=== PATIENT | female | born 1950 | race Caucasian/White ===

== ENCOUNTER 2019-11-12 09:00 | Outpatient (RCR) | payer OTHER, SELFPAY ==
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
== END 2019-11-12 11:35 | disposition home or self-care (01) ==
LOC: ANHPT 09:00
DX: M54.2 Cervicalgia (principal)
CPT/HCPCS: 97110; 97162

== ENCOUNTER 2020-04-14 12:29 | Outpatient (CLI) | payer OTHER, SELFPAY ==
--- NOTE | ~2020-04-14 | CT_ITS ---
EXAMINATION: CT abdomen pelvis w con INDICATION: Nausea vomiting and diarrhea TECHNIQUE: Computed tomographic images of the abdomen and pelvis were obtained after the administrati on of 100 cc of Omnipaque 350 intravenous contrast. The dose-length product (DLP) was 523.94 mGy-cm. Automated exposure control and iterative reconstruction technique were employed. COMPARISON: None available FINDINGS: Minimal dependent atelectasis is present in the lung bases. The heart size is normal. The l iver, spleen, pancreas, gallbladder, and adrenal glands are normal. The kidneys are unremarkable. No pathologically enlarged abdominal or pelvic lymph nodes are identified. There is no free intraperiton eal gas or evidence of bowel obstruction. A moderate volume of colonic stool is present. The appendix is normal. There is a left inguinal hernia containing fat. There is moderate lumbar spondylosis. IMPRESSION: 1. Constipation. 2. Left inguinal hernia containing fat. Reviewed, dictated and finalized at location A. E HOIST OPERATOR
[2020-04-14 13:24] LABS: Estimated Glomerular Filt Rate > 60
== END 2020-04-14 12:30 | disposition home or self-care (01) ==
LOC: ANHIMG 12:39
PROVIDERS: PCP Internal Medicine; Visit Provider Internal Medicine
DX: R11.2 Nausea with vomiting, unspecified (principal); K40.90 Unilateral inguinal hernia, without obstruction or gangrene, not specified as recurrent; K59.00 Constipation, unspecified
CPT/HCPCS: 74177; Q9967

== ENCOUNTER → 2020-09-16 02:51 | Outpatient (CLI) | payer OTHER, SELFPAY ==
[2020-09-16 18:15] LABS: SARS-CoV-2 RNA PCR Negative
== END ==
PROVIDERS: PCP Internal Medicine; Visit Provider Internal Medicine Gastroenterology
DX: Z01.812 Encounter for preprocedural laboratory examination (principal); Z20.822 Contact with and (suspected) exposure to COVID-19
CPT/HCPCS: C9803; U0003; U0005

== ENCOUNTER 2020-09-19 01:05 | Day surgery (SDC) | payer OTHER, SELFPAY ==
[2020-09-13 10:30] VITALS: BMI 30.2
--- NOTE | 2020-09-19 11:55 | WPDANESEPPF ---
Anes - Initial Pre Proc Eval Procedure: Operation Date: 09/19/20 13:45 Proposed Procedures p Esophagogastroduodenoscopy - Jax Becerril MD Date/Time: 09/19/20 11:55 Surgeon: Jax Becerril MD Pre Op Diagnosis: GERD, Upper quad pain Patient Data Age: 70 Gender: F Height: 1.63 m Weight: 80 kg Allergies Allergy/AdvReac Type Severity Reaction Status Date / Time No Known Allergies Allergy Verified 09/19/20 12:23 Home Medications Medication Instructions Recorded Confirmed Type albuterol sulfate 200 mcg capsules 200 mcg INHALATION Q4H PRN 08/04/20 09/19/20 History for inhalation cyclobenzaprine 5 mg tablet 5 mg PO TID PRN 08/04/20 09/19/20 History fluticasone fur. 100 mcg-umeclid 1 inh INHALATION DAILY 08/04/20 09/19/20 History 62.5 mcg-vilant 25 mcg inhalat.powder aspirin 325 mg PO DAILY 09/13/20 09/19/20 History jhrqigwgkbld-dfl-fmif-FA-vit K 1 tablet PO DAILY 09/13/20 09/19/20 History [Adults Multivitamin] nabumetone 500 mg PO DAILY 09/13/20 09/19/20 History trazodone 50 mg PO HS 09/13/20 09/19/20 History Patient hx anesthesia problems: none Family hx anesthesia problems: none PMFSH Past Medical History Medical History (Updated 09/19/20 @ 11:57 by Uriel Hunter MD) Back pain Chronic GERD Colon cancer screening COPD (chronic obstructive pulmonary disease) Hypercholesterolemia Left inguinal hernia Osteoarthritis PTSD (post-traumatic stress disorder) Upper abdominal pain Social History Social History (Updated 08/04/20 @ 08:50 by Mariana Luu CMA) Smoking packs per day: 3 Smoking cigarettes per day: 60.0 Years smoked: 50 Smoking pack-years: 150.00 Smoking status: Former smoker Tobacco type: cigarettes Alcohol intake: never Substance use: never Living arrangements: alone Gender identity (if verbalized by the patient): Female Anes - Eval Final PreProcedure Day of Procedure 09/19/20 11:55 Patient weight: obese Heart: regular rate and rhythm Lungs: clear to auscultation and normal air movement Airway: Mallampati scale class II Neurological: alert and oriented Last oral intake: >/= 8 hours ASA classification: III Emergent: no Anesthetic plan: proceed Anesthesia type and monitoring: general GIVS Informed Consent: The patient's anesthetic plan and its attendant risks and benefits were discussed with the patient/family/POA. Questions were solicited and answers provided to the satisfaction of the patient/family/POA.
[2020-09-19 12:25] VITALS: BP 108/80; PULSE 84; RESP 18; TEMP 36.4; O2SAT 97
[2020-09-19] MEDS: LACTATED RINGERS 1,000 ML 150 ML IV CONT (12:30)
--- NOTE | 2020-09-19 13:53 | PM.HPGS ---
History of Present Illness History of Present Illness Consent: Risks, benefits, and alternatives have been discussed and questions answered. Patient agrees to proceed with procedure. Chief complaint: GERD, Upper quad pain Narrative: Holly Aguero is a 70 year old female with intermittent ruq pain and nausea Review of Systems Constitutional: Constitutional: Denies headache(s) and Denies weakness Eyes: Eyes: Denies blurry vision ENT: Reports Normal hearing present, Denies headache(s) and Denies neck pain Cardiovascular: Cardiovascular: Denies chest pain and Denies dyspnea Respiratory: Respiratory: Denies dyspnea Gastrointestinal: Gastrointestinal: Reports no additional gastrointestinal complaints Genitourinary: Genitourinary: Denies dysuria Musculoskeletal: Musculoskeletal: Denies neck pain Integumentary/Breasts: Skin/Breast: Denies dry skin Neurologic: Reports Normal hearing present, Denies headache(s) and Denies weakness Psychiatric: Psychiatric: Denies anxiety Endocrine: Endocrine: Denies change in body appearance Hematologic/Lymphatic: Hematologic/Lymphatic: Denies easy bleeding Allergic/Immunologic: Allergic/Immunologic: Denies urticaria PMFSH Past Medical History Medical History (Updated 09/19/20 @ 11:57 by Uriel Hunter MD) Back pain Chronic GERD Colon cancer screening COPD (chronic obstructive pulmonary disease) Hypercholesterolemia Left inguinal hernia Osteoarthritis PTSD (post-traumatic stress disorder) Upper abdominal pain Social History Social History (Updated 08/04/20 @ 08:50 by Mariana Luu CMA) Smoking packs per day: 3 Smoking cigarettes per day: 60.0 Years smoked: 50 Smoking pack-years: 150.00 Smoking status: Former smoker Tobacco type: cigarettes Alcohol intake: never Substance use: never Living arrangements: alone Gender identity (if verbalized by the patient): Female Meds Home Medications and Allergies Home Medications Medication Instructions Recorded Confirmed Type albuterol sulfate 200 mcg capsules 200 mcg INHALATION Q4H PRN 08/04/20 09/19/20 History for inhalation cyclobenzaprine 5 mg tablet 5 mg PO TID PRN 08/04/20 09/19/20 History fluticasone fur. 100 mcg-umeclid 1 inh INHALATION DAILY 08/04/20 09/19/20 History 62.5 mcg-vilant 25 mcg inhalat.powder aspirin 325 mg PO DAILY 09/13/20 09/19/20 History gqvultfevznx-bly-mwzc-FA-vit K 1 tablet PO DAILY 09/13/20 09/19/20 History [Adults Multivitamin] nabumetone 500 mg PO DAILY 09/13/20 09/19/20 History trazodone 50 mg PO HS 09/13/20 09/19/20 History Allergies Allergy/AdvReac Type Severity Reaction Status Date / Time No Known Allergies Allergy Verified 09/19/20 12:23 Vital Signs Vital Signs - 24 hr 09/19/20 12:25 Temperature 97.6 F Pulse Rate 84 Respiratory Rate 18 Blood Pressure 108/80 Pulse Oximetry 97 Exam Const: General: comfortable and no acute distress HENMT: General nose exam: Normal nares present Eyes: General: appearance normal, both eyes and all related structures Neck: Neck: no JVD Resp: Auscultation: clear to auscultation bilaterally Cardio: Rate: regular rate Rhythm: regular rhythm GI: Inspection: non-distended GI Palp: Yes Soft to palpation Skin: General skin exam: normal color Neuro: General: gait normal Speech: normal speech Extrem: General: normal to inspection Psych: Mental Status: mental status grossly normal Assessment and Plan Assessment and plan (1) Upper abdominal pain: Code(s): R10.10 - Upper abdominal pain, unspecified Status: Acute Assessment and Plan: egd with bx
[2020-09-19 14:05] VITALS: BP 102/64; PULSE 82; RESP 22; O2SAT 97
[2020-09-19 14:15] VITALS: BP 112/75; PULSE 74; RESP 18; O2SAT 98
[2020-09-19 14:25] VITALS: BP 109/67; PULSE 72; RESP 22; O2SAT 98
== END 2020-09-19 14:37 | disposition home or self-care (01) ==
PROVIDERS: PCP Internal Medicine; Visit Provider Internal Medicine Gastroenterology
PROC: 0DJ08ZZ Inspection of Upper Intestinal Tract, Via Natural or Artificial Opening Endoscopic (ICD-10-PCS; CPT 43235; principal; 2020-09-19 13:45)
DX: K21.00 Gastro-esophageal reflux disease with esophagitis, without bleeding (principal); K29.70 Gastritis, unspecified, without bleeding; J44.9 Chronic obstructive pulmonary disease, unspecified; E78.00 Pure hypercholesterolemia, unspecified; M19.90 Unspecified osteoarthritis, unspecified site; F43.10 Post-traumatic stress disorder, unspecified; Z87.891 Personal history of nicotine dependence; E66.9 Obesity, unspecified; Z68.29 Body mass index [BMI] 29.0-29.9, adult; Z79.51 Long term (current) use of inhaled steroids
CPT/HCPCS: 43239; 87081; 88305; C9803; J2704; J7120; U0003; U0005

== ENCOUNTER → 2021-01-25 07:37 | Outpatient (CLI) | payer OTHER, SELFPAY ==
--- NOTE | ~2021-01-25 | MM_ITS ---
EXAMINATION: MM screening gem BI w elena HISTORY: Screening TECHNIQUE: Craniocaudal and mediolateral oblique 3-D tomosynthesis images were obtained and synthetic 2-D images were generated. CAD analysis was submitted and interpreted. COMPARISON: Comparison to multiple prior studies sequentially, with oldest reviewed study dated 03/17. BREAST PARENCHYMAL COMPOSITION: The breasts are heterogeneously dense, which may obscure small masses . FINDINGS: There is no evidence of suspicious mass, calcification, or architectural distortion to sugg est malignancy in either breast. There has been no suspicious interval change. IMPRESSION: 1. No mammographic evidence of malignancy. 2. Recommend routine screening mammography in one year. BI-RADS Category 1: Negative Reviewed, dictated and finalized at location A.
--- NOTE | ~2021-01-25 | US_ITS ---
EXAMINATION: US right upper quadrant EXAM DATE: 01/25/2021 08:15 INDICATION: RUQ abdominal pain . TECHNIQUE: Multiple grayscale and Doppler images of the abdomen right upper quadrant were obtained (b y a technologist who performed the scan) and subsequently reviewed. There is no prior study for marshall alegria. FINDINGS: The pancreatic head and body are normal in appearance. The pancreatic tail is not visualized. The l iver has normal echogenicity and contour. There are no focal liver lesions identified. There is no evidence of intrahepatic biliary duct dilation. Portal venous flow was seen in the hepatopedal, nor mal direction and has normal Doppler waveform. No right-sided hydronephrosis. Common bile duct measures 4 mm, which is normal. The gallbladder wall is normal in thickness, with ex pected amount of distention. No sonographic evidence of pericholecystic fluid. There is no cholelit hiases. Technologist performing exam reports patient did not demonstrate sonographic Moyer's sign. Please note that this sign is less reliable in patients who have received pain medication. Technologist noted that patient did seem to have tenderness over the ribs on the right. IMPRESSION: 1. Unremarkable abdominal ultrasound exam. 2. Technologist noted some right rib tenderness. Reviewed, dictated and finalized at location A.
== END ==
PROVIDERS: PCP Internal Medicine
DX: Z12.31 Encounter for screening mammogram for malignant neoplasm of breast (principal); R10.11 Right upper quadrant pain
CPT/HCPCS: 76705; 77063; 77067

== ENCOUNTER 2021-12-11 00:08 | Day surgery (SDC) | payer OTHER, SELFPAY ==
[2021-12-08 17:36] VITALS: BMI 30.5
[2021-12-11] VITALS (7 sets, daily range): BP systolic 110–127; BP diastolic 67–82; PULSE 61–70; RESP 14–17; TEMP 36.7; O2SAT 92–96; BMI 31.1
[2021-12-11 07:22] LABS: Basophils Absolute Auto 0.1 K/mm3 (0.0-0.1); Eosinophils Absolute Auto 0.2 K/mm3 (0-0.3); Eosinophils Percent Auto 3.2 % (0-4.4); Hematocrit 40.3 % (37.0-47.0); Hemoglobin 13.1 g/dL (12.0-15.0); Immature Granulocyte Absolute 0.01 K/mm3 (0.00-0.031); Immature Granulocyte Percent A 0.1 % (0-0.5); Lymphocytes Absolute Auto 2.64 K/mm3 (0.9-3.2); Lymphocytes Percent Auto 38.6 % (18.3-44.2); Mean Corpuscular HGB Conc 32.5 g/dl (32-36); Mean Corpuscular Hemoglobin 33.3 pg (26-34); Mean Corpuscular Volume 102.5 fl (80-100); Monocytes Absolute Auto 0.6 K/mm3 (0.1-0.6); Monocytes Percent Auto 9.4 % (2.6-8.5); Neutrophils Absolute Auto 3.3 K/mm3 (1.3-6.7); Neutrophils Percent Auto 47.7 % (45.5-73.1); Platelet Count Result 321 k/mm3 (150-375); Red Blood Count 3.93 M/mm3 (4.2-5.4); White Blood Count 6.8 K/mm3 (4.5-10.0)
[2021-12-11 07:40] LABS: Anion Gap 9 mmol/L (8-16); Blood Urea Nitrogen 24 mg/dL (7-17); Carbon Dioxide 30 mmol/L (22-30); Chloride 101 mmol/L (98-107); Estimated CRCL calculation 54 ml/min; Estimated Glomerular Filt Rate > 60; Glucose 92 mg/dL (65-110); Potassium 3.7 mmol/L (3.4-5.0); Sodium 140 mmol/L (137-145)
--- NOTE | 2021-12-11 08:35 | WPDMODSED ---
Moderate Sedation Note-Pt Data Patient Data Diagnosis: Exertional dyspnea longstanding cigarette smoker abnormal nuclear stress test Present Complaint: LOVELACE Procedure to be performed/Plan: left heart catheterization Allergies Allergy/AdvReac Type Severity Reaction Status Date / Time No Known Allergies Allergy Verified 12/11/21 07:10 Home Medications Medication Instructions Recorded Confirmed Type cyclobenzaprine 5 mg tablet 5 mg PO TID PRN Pain 08/04/20 12/11/21 History nabumetone 500 mg tablet 500 mg PO DAILY 09/13/20 12/11/21 History albuterol sulfate 90 mcg/actuation 2 puff inhalation 4-6XD PRN 12/08/21 12/11/21 History aerosol inhaler (ProAir HFA) Shortness Of Breath Or Wheezing budesonide 160 mcg-glycopyr 9 2 inh inhalation BID 12/08/21 12/11/21 History mcg-formot 4.8 mcg/actuation HFA inhaler (Breztri Aerosphere) ondansetron 4 mg disintegrating 4 mg PO 4-6XD PRN Nausea 12/08/21 12/11/21 History tablet tramadol 50 mg tablet 50 mg PO BID PRN Pain 12/11/21 12/11/21 History Current Medications: Active Medications Sodium Chloride (Normal Saline Iv) 500 mls @ 100 mls/hr IV CONT .Q5H BÁRBARA Sedation/Anesthesia: No previous sedation/anesthesia problems (including family history). FORMERLY [facility], [facility] Past Medical History Medical History (Updated 09/19/20 @ 11:57 by Uriel Hunter MD) Back pain Chronic GERD Colon cancer screening COPD (chronic obstructive pulmonary disease) Hypercholesterolemia Left inguinal hernia Osteoarthritis PTSD (post-traumatic stress disorder) Upper abdominal pain Social History Social History (Updated 08/04/20 @ 08:50 by Mariana Luu CMA) Smoking packs per day: 3 Smoking cigarettes per day: 60.0 Years smoked: 50 Smoking pack-years: 150.00 Smoking status: Former smoker Tobacco type: cigarettes Smoking end date: 04/15/17 Alcohol intake: never Substance use: never Living arrangements: alone Gender identity (if verbalized by the patient): Female Spiritual care concerns: No Mod Sed Physical Exam Physical Exam Pre Procedural Exam: Normal: Neck, Throat, Airway, Lungs, Heart Size, Heart Rate, Heart Rhythm, Neuro Exam and Extremities and Variation: Appearance ( overweight white female no distress) Hours since solid foods: 12 Hours since liquid intake: 12 Mallampati Classification: class II Internal Medicine - PN: Obj Da Vital Signs Vital Signs: Vital Signs - 24 hr 12/11/21 07:21 Temperature 36.7 C Pulse Rate 67 Respiratory Rate 17 Blood Pressure 125/77 Pulse Oximetry 92 Oxygen Delivery Room Air Meds/Results Medications: Active Medications Generic Name Dose Route Start Last Admin Trade Name Irvingq PRN Reason Stop Dose Admin Sodium Chloride 500 mls @ 100 mls/hr 12/11/21 07:00 Normal Saline Iv IV CONT .Q5H BÁRBARA Labs CBC & Chem 7: 12/11/21 07:09 12/11/21 07:09 Labs: Laboratory Results - last 24 hr 12/11/21 12/11/21 07:09 07:09 WBC 6.8 RBC 3.93 L Hgb 13.1 Hct 40.3 MCV 102.5 H MCH 33.3 MCHC 32.5 RDW 13.0 Plt Count 321 MPV 9.0 Immature Gran % (Auto) 0.1 Neut % (Auto) 47.7 Lymph % (Auto) 38.6 Green % (Auto) 9.4 H Eos % (Auto) 3.2 Baso % (Auto) 1.0 Lymph # (Auto) 2.64 Green # (Auto) 0.6 Eos # (Auto) 0.2 Baso # (Auto) 0.1 Abs Immat Gran (auto) 0.01 Absolute Neuts (auto) 3.3 Absolute Nucleated RBC 0.0 Nucleated RBC % 0.0 Sodium 140 Potassium 3.7 Chloride 101 Carbon Dioxide 30 Anion Gap 9 BUN 24 H Creatinine 0.90 Estim Creat Clear Calc 54 Estimated GFR > 60 Glucose 92 Calcium 9.0 ASA Classification/Sedation ASA Classification/Sedation ASA Class: II Emergent: No Risks: Risks, benefits and alternatives explained and patient/family accepted plan for sedation. Patient re-evaluated immediately prior to sedation.
--- NOTE | 2021-12-11 09:11 | P.PCNCC_ITS ---
Cardiac Cath Procedure Note Date of procedure:: 12/11/21 Performing physician:: Cj Maldonado MD Indication:: exertional dyspnea abnormal nuclear stress test Brief clinical history:: this is a 71-year-old lady without any prior history of cardiac disease. She has been smoking for many years and is reporting increasing dyspnea. A nuclear stress test was done as an outpatient demonstrating anterior ischemia. In this setting an angiogram has been recommended. Procedure Procedure performed:: Left ventriculogram coronary angiogram Angio-Seal to right femoral artery Sedation/Medication given:: fentanyl 25 mg Versed 1 mg case start time 8:51 a.m. case end time 9:00 a.m. sedation provided by Melvin Beatty RN, trained observer Access site:: right femoral artery Estimated blood loss:: 25 cc Procedure note:: patient was brought to the cardiac catheterization lab in the postabsorptive state where the right femoral triangle was prepared and draped usual fashion. Anesthesia was provided with 1% lidocaine infiltrated locally. Using the modified Seldinger technique a 5 Palestinian sheath was placed into the right common femoral artery after this left heart catheterization was performed. I used a 5 Palestinian angled pigtail catheter to measure left-sided hemodynamics and to inject LV g in the SPENCE projection. Following this the left coronary artery was engaged and injected in multiple projections using 5 Palestinian FL4 catheter. A 5 Palestinian JR4 catheter was used to engage and inject the right coronary artery orthogonal projections. The cineangiograms were then reviewed and the case was terminated. An angiogram was done of the femoral artery through the sheath after which an Angio-Seal device was deployed with a good hemostatic result. Procedure was well tolerated there were no apparent complications and she left the lab director with no evidence of groin hematoma. Findings:: Hemodynamics: Left ventricle: The LV is normal in size all segments contract appropriately the global ejection fraction is 55-60% by visual estimation. There were no regional wall motion abnormalities. The left main coronary artery is large in caliber and widely patent the left anterior descending is a large caliber vessel extending down to and around the apex. The LAD is smooth and angiographically unremarkable in appearance the circumflex is a moderate caliber vessel giving rise to the marginal branches. The circumflex system is also smooth and angiographically normal in appearance. The right coronary artery is large caliber and dominant to the posterior circulation. The RCA is smooth and angiographically normal in appearance. Conclusion:: 1. Right coronary Cain circulation with no angiographic evidence of coronary artery disease 2. well-preserved left ventricular systolic function 3. these data would lead to the conclusion the patient has exertional shortness of breath for nonischemic reasons, likely related to chronic lung disease and her stress test is a false-positive Cj Maldonado MD [facility]
--- NOTE | 2021-12-11 09:33 | SUR.PHASEII ---
patient in recovery room 4, dr orona in department and spoke with patient's daughter about results. patient education given on bedrest and laying flat. vss. will continue to monitor, call light in reach
--- NOTE | 2021-12-11 12:01 | SUR.PHASEII ---
DISCHARGE INSTRUCTION REVIEWED WITH PT AND FAMILY. VERBALIZED UNDERSTANDING. PT ESCORTED OFF FLOOR.
== END 2021-12-11 12:02 | disposition home or self-care (01) ==
PROVIDERS: PCP Internal Medicine; Visit Provider Specialist
PROC: 4A023N7 Measurement of Cardiac Sampling and Pressure, Left Heart, Percutaneous Approach (ICD-10-PCS; CPT 93452; principal; 2021-12-11 08:30)
DX: R94.39 Abnormal result of other cardiovascular function study (principal); R06.09 Other forms of dyspnea; Z79.82 Long term (current) use of aspirin; F17.210 Nicotine dependence, cigarettes, uncomplicated
CPT/HCPCS: 36415; 80048; 85025; 93458; C1760; C1887; C1894; G0269; J1644; J2250; J3010; J7040

== ENCOUNTER 2022-12-28 07:51 | Outpatient (CLI) | payer OTHER, SELFPAY ==
--- NOTE | ~2022-12-28 | CT_ITS ---
CT Scan of the Chest without Contrast: Clinical Indication: COPD Technique: Contiguous sections were acquired throughout the chest without intravenous contrast. Dose reduction technique was used on this scan by utilizing automated exposure control and iterative recon struction technique. The dose-length product (DLP) was 127.01 mGy-cm. Findings: There is no evidence of any significant mediastinal, hilar or axillary lymphadenopathy. The mediastin al soft tissues appear normal. There is no evidence of pleural or pericardial effusion. There is a 2 cm spiculated nodule in the right upper lobe/right lung apex (axial image 23). There is moderate to advanced emphysema. Images through the upper abdomen reveal no abnormalities. Impression: 2 cm spiculated nodule at the right lung apex. In the absence of prior outside exams to confirm chron ic nodular scarring, this is highly suspicious for neoplasm. Tissue sampling and/or PET CT recommende d for further evaluation. Moderate to advanced emphysema. Reviewed, dictated and finalized at [facility]. Impression: 2 cm spiculated nodule at the right lung apex. In the absence of prior outside exams to confirm chronic nodular scarring, this is highly suspicious for neopla sm. Tissue sampling and/or PET CT recommended for further evaluation. Moderate to advanced emphysema.
[2022-12-28 08:00] VITALS: PULSE 72; O2SAT 96
[2022-12-28 08:05] VITALS: PULSE 87; O2SAT 89
[2022-12-28 08:20] VITALS: PULSE 82; O2SAT 91
--- NOTE | 2022-12-28 09:41 | HOMEO2EVAL ---
Evaluation was performed at [facility] Home Oxygen Evaluation RC: Home Oxygen (O2) Evaluation Start: 12/28/22 09:39 Freq: Status: Active Protocol: RPE Activity Type Activity Date Activity User E-sign Co-sign Detail Recorded Client Recorded Date Recorded By Document 12/28/22 08:00 DJO [email or web address] 12/28/22 09:41 DJO Document 12/28/22 08:05 DJO [id number] 12/28/22 09:41 DJO Document 12/28/22 08:20 [email or web address] [email or web address] 12/28/22 09:41 DJO 12/28/22 12/28/22 12/28/22 08:00 08:05 08:20 Home O2 Evaluation [Oxygen] -Test Phase Resting Exercise Resting -Oxygen Delivery Room Air Room Air Room Air [Pulse Oximetry] -Pulse Oximetry (90-100 %) 96 89 L 91 [Pulse Rate] -Pulse Rate (60-100 beats/min) 72 87 82 [Evaluation] -Activity Tolerance Good [Exercise] -Ambulation Distance (feet) 500 -Ambulation Distance (meters) 152.39 [Charges] -Treatment Charges O2 Evaluation - Outpatient
--- NOTE | 2022-12-28 09:42 | PCRCNOTE ---
UNABLE TO GET ACCEPTABLE AND REPRODUCIBLE RESULTS FOR PLETHYSMOGRAPHY DUE TO PT'S PERSISTENT COUGH
--- NOTE | 2022-12-31 13:20 | WPDPFTINT ---
PFT Procedure Performed PFT Procedure Performed Spirometry with Pre/Post Bronchodilator Diffusing Cap (DLCO) Flow Vol Loop PFT Interpretation This is a pulmonary function test with pre and post-bronchodilator spirometry and diffusing capacity. The test was performed and results interpreted in accordance with the 2019 and 2005 ATS/ERS Task Force guidelines respectively using the Global Lung Function Initiative-2012 reference equations. Patient demonstrated good effort and cooperation. Reproducibility criteria were met. The quality of the pre bronchodilator spirometry maneuver was Grade B and post bronchodilator spirometry maneuver was Grade A. Of note the patient had difficulty with testing due to persistent cough. Unable to get acceptable and reproducible plethysmography results. Findings: Spirometry: The contour of all 3 pre bronchodilator expiratory flow tracings is notched or has a saw-toothed pattern and the contour of 1 of 3 post bronchodilator flow tracings is notched and 2 of 3 without saw-tooth. There is decreased maximal expiratory airflow at all expiratory flow tracings. The contour the inspiratory flow tracing is truncated. The pre bronchodilator FVC is 1.58 L, 58% predicted. The pre bronchodilator FEV1 is 0.65 L, 30% predicted. The pre bronchodilator FEV1: FVC ratio is 41%. The post bronchodilator FVC is 1.92 L, representing a 21% increase. The post bronchodilator FEV1 is 0.87 L, representing a 33% increase. The post bronchodilator FEV1: FVC ratio is 45%. Diffusing capacity: The diffusing capacity unadjusted for hemoglobin and carboxyhemoglobin is 8.6, 43% predicted. The diffusing capacity adjusted for alveolar volume is 3.02, 70% predicted. Impression: The notched expiratory flow tracing pattern has been described with coughing or tracheobronchomalacia. The sawtooth pattern. This is usually generated either by air flow disturbances in the upper airway are from tremors of the respiratory muscles. This has been associated with sleep apnea, obesity, snorers without obstructive sleep apnea, upper airway injury, upper airway stenosis, tracheobronchomalacia, neuromuscular disorders with bulbar involvement, burn injury of the upper airway, diaphragmatic myoclonus, and herpes zoster of abdominal muscles. Clinical correlation is recommended. There is a very severe obstructive abnormality with significant improvement after inhaling a single dose of albuterol. A concurrent restrictive abnormality cannot be excluded as lung volumes were unable to be measured. The diffusing capacity unadjusted for hemoglobin and carboxyhemoglobin is moderately decreased and normalizes when adjusted for alveolar volume. There are no prior studies for comparison
== END 2022-12-28 07:52 | disposition home or self-care (01) ==
PROVIDERS: PCP Internal Medicine; Visit Provider Physician Assistant
DX: J44.9 Chronic obstructive pulmonary disease, unspecified (principal); R06.09 Other forms of dyspnea; Z87.891 Personal history of nicotine dependence; R94.2 Abnormal results of pulmonary function studies; R91.1 Solitary pulmonary nodule
CPT/HCPCS: 71250; 94060; 94618; 94729

== ENCOUNTER 2023-01-02 05:21 | Outpatient (CLI) | payer OTHER, SELFPAY ==
[2023-01-01 09:05] VITALS: BMI 33.2
--- NOTE | 2023-01-01 09:05 | PC.NURSE ---
Pre Radiology instructions Report to the outpatient [facility] on date __01/02/23___ at time __9:00AM for procedure Time: _11:00AM___ YOU MAY BE MONITORED AT HOSPITAL FOR UP TO 4 HOURS AFTER YOUR PROCEDURE. A visitor will be allowed to accompany the patient into the hospital. You and your visitor will be asked to self-screen and do not enter if you have any COVID symptoms. A mask is OPTIONAL within the hospital. Patients are to have no food or drink 6 hours prior to procedure time Driving will be restricted after the procedure, you must have a person to drive you home. Labs will be drawn in preop area and once reviewed, you will be taken to radiology area for procedure. When the procedure is completed, you will be taken to outpatient where you will be monitored for several hours. You may have one visitor in this area. Other than holding anti-coagulants, patient may take other medication(s) as scheduled. Prior to your appointment date patients are instructed to hold anti-coagulants after discussing with ordering provider to stop. If unable to discontinue anti-coagulants please notify radiologist. ? No aspirin or warfarin (Coumadin) for 7 days prior to the procedure. ? No clopidogrel (Plavix), ticagrelor (Brilinta), prasugrel (Effient) or dabigatran (Pradaxa) for 5 days prior to the procedure. ? No rivaroxaban (Xarelto), apixaban (Eliquis), dipyridamole (Aggrenox or Persantine) or cilostazol (Pletal) for 2 days prior to the procedure. Medications to discontinue per physician: __NONE Date to take last dose: Please leave all valuables, including medications, at home the day of procedure. The hospital will not accept responsibility for valuables. Wear comfortable, loose fitting clothing.? Follow any additional instructions given to you from ordering provider. Telephone instructions given to __PATIENT and asked if any additional questions and then verbalized understanding. Patient advised to call scheduling provider office or registration scheduling [phone] if any additional questions.
[2023-01-02] VITALS (10 sets, daily range): BP systolic 102–116; BP diastolic 52–74; PULSE 66–82; RESP 16–20; TEMP 36.3; O2SAT 95–100
--- NOTE | ~2023-01-02 | XR_ITS ---
EXAMINATION: XR chest 1V portable DATE: 01/02/2023 14:28 INDICATION: Status post percutaneous right lung biopsy TECHNIQUE: frontal view of the chest was obtained. COMPARISON: Chest radiograph dated 01/02/23 FINDINGS: Again seen is the biopsied nodule at the right apex. Calcified nodule at the right costophrenic angle consistent with old granulomatous disease. No new airspace opacities, pulmonary edema, pleural effus ion or pneumothorax. The cardiomediastinal silhouette is normal. Mild to moderate scattered degenerat sara skeletal changes in the spine and at both shoulders. IMPRESSION: 1. No pleural effusion, pneumothorax or other acute cardiopulmonary disease post percutaneous biopsy of a right apical nodule which remains concerning for primary bronchogenic carcinoma. Reviewed, dictated and finalized at location A. IMPRESSION: 1. No pleural effusion, pneumothorax or other acute cardiopulmonary disease pos t percutaneous biopsy of a right apical nodule which remains concerning for greer jacobo bronchogenic carcinoma.
--- NOTE | ~2023-01-02 | XR_ITS ---
Portable chest x-ray Comparison: 01/02/2023 Clinical History: Postbiopsy Findings: Spiculated right apical nodule is somewhat poorly seen on the current radiograph. No pneum othorax evident. Cardiomediastinal silhouette is stable. Bones and soft tissues are unremarkable. Impression: Left lung clear. No pneumothorax. Right apical spiculated density is somewhat poorly seen radiographically. Follow up with biopsy resul ts. Reviewed, dictated and finalized at location M. Impression: Left lung clear. No pneumothorax. Right apical spiculated density is somewhat poorly seen radiographically. Follo w up with biopsy results.
--- NOTE | ~2023-01-02 | CT_ITS ---
EXAMINATION: CT biopsy lung w/imaging DATE: 01/02/2023 11:37 INDICATION: Solitary pulmonary nodule2 TECHNIQUE: The procedure including the risks and benefits was discussed with the patient. Risks discu ssed included infection, approximately 1/20 risk of symptomatic hemorrhage beyond mild hemoptysis, ap proximately 1/3 risk of pneumothorax, and approximately 1/10 risk of pneumothorax severe enough to wa rrant chest tube placement. The patient understood the risks and agreed to proceed. The patient was p laced prone. The skin overlying the paraspinal left upper chest was prepped and draped in sterile fa shion. Anesthetic was administered with 1% lidocaine subcutaneously. A 19 gauge outer needle was ad vanced under CT guidance to the lesion of interest. A 20 gauge core biopsy needle was then used to ob tain 4 core biopsy specimens. 10 mm of the patient's blood was aspirated from the peripheral IV with approximately 4 mm injected during withdrawal of the needle. The entry site was cleaned and dressed. There were no immediate complications. The dose-length product was 127.09 mGy-cm. FINDINGS: CT images demonstrate the outer needle tip just within a 2 cm spiculated nodule at the post erior left apex. There is moderate emphysema. IMPRESSION: 1. Successful CT-guided biopsy of a 2.0 cm spiculated left apical nodule. Reviewed, dictated and finalized at location A.
--- NOTE | ~2023-01-02 | XR_ITS ---
EXAMINATION: XR chest 1V DATE: 01/02/2023 11:37 INDICATION: Status post percutaneous right lung biopsy TECHNIQUE: frontal and lateral views of the chest were obtained. COMPARISON: Chest radiograph dated 05/02/2018 FINDINGS: The biopsied right upper lobe nodule is subtly visible projecting over the lateral right first rib. A dditional calcified nodule near the right costophrenic angle. No other airspace opacities, pulmonary edema, pleural effusion or pneumothorax. Heart size is normal. Tortuous thoracic aorta. IMPRESSION: 1. No pneumothorax or pleural effusion post percutaneous biopsy of a right apical nodule which is con cerning for malignancy. Reviewed, dictated and finalized at location A. IMPRESSION: 1. No pneumothorax or pleural effusion post percutaneous biopsy of a right apic al nodule which is concerning for malignancy.
[2023-01-02 09:22] LABS: Mean Platelet Volume 9.9 fl (7.4-10.4); Platelet Count Result 379 k/mm3 (150-375)
--- NOTE | 2023-01-02 09:30 | SUR.PREOP ---
CT notified labs have been sent to lab.
[2023-01-02 09:55] LABS: INR 0.9; Prothrombin Time 12.5 Seconds (11.1-14.7)
== END 2023-01-02 15:30 | disposition home or self-care (01) ==
PROVIDERS: PCP Internal Medicine; Referring Provider Physician Assistant; Visit Provider Radiology Diagnostic Radiology
PROC: BB24ZZZ Computerized Tomography (CT Scan) of Bilateral Lungs (ICD-10-PCS; CPT 32408; principal; 2023-01-02 11:00)
DX: Z01.818 Encounter for other preprocedural examination (principal); R91.1 Solitary pulmonary nodule; R91.8 Other nonspecific abnormal finding of lung field; Z87.891 Personal history of nicotine dependence
CPT/HCPCS: 32408; 36415; 71045; 85049; 85610; 88305; 88342

== ENCOUNTER → 2023-01-28 10:14 | Outpatient (CLI) | payer OTHER, SELFPAY ==
--- NOTE | ~2023-01-28 | MM_ITS ---
EXAMINATION: MM screening [facility] BI w elena HISTORY: Screening TECHNIQUE: Craniocaudal and mediolateral oblique 3-D tomosynthesis images were obtained and synthetic 2-D images were generated. CAD analysis was submitted and interpreted. COMPARISON: Comparison to multiple prior studies sequentially, with oldest reviewed study dated 03/17. BREAST PARENCHYMAL COMPOSITION: There are scattered areas of fibroglandular density. FINDINGS: There is no evidence of suspicious mass, calcification, or architectural distortion to sugg est malignancy in either breast. There has been no suspicious interval change. IMPRESSION: 1. No mammographic evidence of malignancy. 2. Recommend routine screening mammography in one year. BI-RADS Category 1: Negative Reviewed, dictated and finalized at location A.
== END ==
PROVIDERS: PCP Internal Medicine; Visit Provider Internal Medicine
DX: Z12.31 Encounter for screening mammogram for malignant neoplasm of breast (principal)
CPT/HCPCS: 77063; 77067

== ENCOUNTER 2023-04-26 10:03 | Outpatient (CLI) | payer OTHER, SELFPAY ==
--- NOTE | ~2023-04-26 | CT_ITS ---
CT Scan of the Chest without Contrast: Clinical Indication: Lung cancer Technique: Contiguous sections were acquired throughout the chest without intravenous contrast. Dose reduction technique was used on this scan by utilizing automated exposure control and iterative recon struction technique. The dose-length product (DLP) was 180.95 mGy-cm. COMPARISON: 12/28/2022 Findings: There is no evidence of any significant mediastinal, hilar or axillary lymphadenopathy. The mediastin al soft tissues appear normal. There is no evidence of pleural or pericardial effusion. Spiculated right apical pulmonary nodule measures 1.9 cm in diameter, possibly minimally decreased fr om prior exam. There is interstitial thickening in the right lung apex, which could reflect an elemen t of post radiation change. Moderate to severe emphysema again noted. Calcified right lower lobe gran uloma present. Images through the upper abdomen reveal no abnormalities. Impression: 1.9 cm right apical pulmonary nodule, questionably minimally decreased from prior exam. Possible mild surrounding post radiation change. Correlate with treatment history. Stable moderate to severe emphysema. Reviewed, dictated and finalized at [facility]. GENCY OPERATOR Impression: 1.9 cm right apical pulmonary nodule, questionably minimally decreased from greer or exam. Possible mild surrounding post radiation change. Correlate with treatment histo ry. Stable moderate to severe emphysema.
== END 2023-04-26 10:04 | disposition home or self-care (01) ==
PROVIDERS: PCP Internal Medicine; Visit Provider Physician Assistant Medical
DX: C34.11 Malignant neoplasm of upper lobe, right bronchus or lung (principal); R26.9 Unspecified abnormalities of gait and mobility; R91.1 Solitary pulmonary nodule; J43.9 Emphysema, unspecified
CPT/HCPCS: 71250

== ENCOUNTER 2023-08-07 09:46 | Outpatient (CLI) | payer OTHER, SELFPAY ==
--- NOTE | ~2023-08-07 | CT_ITS ---
EXAMINATION:CT diagnostic chest wo con DATE: 08/07/2023 10:22 INDICATION: Malignant neoplasm of upper lobe of right lung. TECHNIQUE: Computed tomography (CT) of the chest was performed without intravenous contrast. Automate d exposure control and iterative reconstruction technique were employed. The dose-length product (DLP ) was 160.41 mGy-cm. COMPARISON: Chest CT 04/26/2023, 12/28/22 FINDINGS: There is moderate emphysema. There is a 15 mm nodule in right lung upper lobe with surround ing reticular airspace opacities, consistent with radiation pneumonitis. There is mild scarring in pa raspinal right lower lobe. There is a 9 mm nodule in right lower lobe that measured 4 mm on 04/26/23. There is a stable 5 mm nodule in right lower lobe, probably benign. Calcified pulmonary nodules and c alcified hilar and mediastinal lymph nodes are consistent with old granulomatous disease. No pleural effusion. There are nodules in the thyroid measuring up to 11 mm, likely not clinically significant. The heart size is normal. No pericardial effusion. There is moderate thoracic spondylosis. IMPRESSION: 1. Stable 15 mm nodule in right lung upper lobe, consistent with primary bronchogenic carcinoma. 2. Worsened 9 mm nodule in right lung lower lobe which may be infection, primary bronchogenic carcino ma, or metastatic disease. Reviewed, dictated and finalized at location E. IMPRESSION: 1. Stable 15 mm nodule in right lung upper lobe, consistent with primary bronch ogenic carcinoma. 2. Worsened 9 mm nodule in right lung lower lobe which may be infection, primar y bronchogenic carcinoma, or metastatic disease.
== END 2023-08-07 09:47 | disposition home or self-care (01) ==
PROVIDERS: PCP Internal Medicine; Visit Provider Physician Assistant Medical
DX: C34.11 Malignant neoplasm of upper lobe, right bronchus or lung (principal); R91.8 Other nonspecific abnormal finding of lung field
CPT/HCPCS: 71250

== ENCOUNTER 2023-10-21 07:47 | Outpatient (CLI) | payer OTHER, SELFPAY ==
--- NOTE | ~2023-10-21 | CT_ITS ---
CT Scan of the Chest without Contrast: Clinical Indication: Lung cancer Technique: Contiguous sections were acquired throughout the chest without intravenous contrast. Dose reduction technique was used on this scan by utilizing automated exposure control and iterative recon struction technique. The dose-length product (DLP) was 177.86 mGy-cm. COMPARISON: 08/07/2023 Findings: There is no evidence of any significant mediastinal, hilar or axillary lymphadenopathy. The mediastin al soft tissues appear normal. There is no evidence of pleural or pericardial effusion. Stable spiculated nodule at the right lung apex measuring 1.5 cm in diameter, with surrounding inters titial thickening. Mild to moderate emphysema present, especially in the upper lobes. There is probab le atelectatic change at the anteromedial left upper lobe. Decreased right lower lobe pulmonary nodul e (axial image 63). Images through the upper abdomen reveal no abnormalities. Impression: Stable 1.5 cm spiculated right apical pulmonary nodule with surrounding interstitial thickening. Find ings could reflect treated disease versus active neoplasm. Correlate with treatment history. Subcentimeter right lower lobe pulmonary nodule is improved from prior exam. Probable atelectatic change at the anteromedial left upper lobe. Attention on follow-up is advised. Mild to moderate emphysema. Reviewed, dictated and finalized at location . Impression: Stable 1.5 cm spiculated right apical pulmonary nodule with surrounding interst itial thickening. Findings could reflect treated disease versus active neoplasm . Correlate with treatment history. Subcentimeter right lower lobe pulmonary nodule is improved from prior exam. Probable atelectatic change at the anteromedial left upper lobe. Attention on f ollow-up is advised. Mild to moderate emphysema.
== END 2023-10-21 07:48 | disposition home or self-care (01) ==
PROVIDERS: PCP Internal Medicine; Visit Provider Physician Assistant Medical
DX: C34.11 Malignant neoplasm of upper lobe, right bronchus or lung (principal); J43.9 Emphysema, unspecified
CPT/HCPCS: 71250

== ENCOUNTER 2024-06-06 08:03 | Outpatient (CLI) | payer OTHER, SELFPAY ==
--- NOTE | ~2024-06-06 | CT_ITS ---
EXAMINATION: CT diagnostic chest wo con DATE: 06/06/2024 08:32 INDICATION: NON SMALL CELL LUNG CANCER TECHNIQUE: Computed tomography (CT) of the chest was performed without intravenous contrast. Addition al 3D reconstructions utilizing coronal maximum intensity projection (MIP) were performed. Automated exposure control and iterative reconstruction technique were employed. The dose-length product was 19 5.66 mGy-cm. COMPARISON: CT dated 10/21/2023 FINDINGS: Moderate emphysema. There is a region of pleural parenchymal scarring at the posterolateral periphery of the right apex with spiculated pattern of septal line thickening extending more centrally into th e lung and surrounding a 1.5 x 1.1 cm nodule which is consistent with biopsy-proven lung cancer. The peripheral scarring has increased since 04/26/2023 but with decrease in size of a nodule which measure d 1.7 x 1.3 cm at that time which would be consistent with interval radiation treatment for lung canc er. Calcified right upper and lower lobe nodules along with calcified left hilar and mediastinal lymp h nodes consistent with old granulomatous disease. Unchanged 6 x 3 mm noncalcified nodule at the supe rior segment of the right lower lobe. There is a new 7 mm pleural-based nodule at the medial left ape x. No other new or enlarging pulmonary nodules. No pneumonia, pulmonary edema or pleural effusion. He art size is normal. No pericardial effusion. Thoracic aorta is normal in caliber. Multinodular goiter . No pathologically enlarged abdominal or pelvic lymphadenopathy. Visualized upper abdomen is unremar kable. Moderate thoracic and upper lumbar spondylosis. IMPRESSION: 1. No change since 08/07/2023 and a 1.5 cm right upper lobe nodule with adjacent pleural parenchymal s carring and septal line thickening consistent with likely treated lung cancer. 2. New 7 mm left apical nodule which could be infectious, inflammatory or malignant either primary or metastatic. Recommend 3-6 month follow-up low-dose noncontrast chest CT. 3. Moderate emphysema. 4. Multinodular goiter. Reviewed, dictated and finalized at location [facility] IMPRESSION: 1. No change since 08/07/2023 and a 1.5 cm right upper lobe nodule with adjacent pleural parenchymal scarring and septal line thickening consistent with likely treated lung cancer. 2. New 7 mm left apical nodule which could be infectious, inflammatory or malig nant either primary or metastatic. Recommend 3-6 month follow-up low-dose nonco ntrast chest CT. 3. Moderate emphysema. 4. Multinodular goiter.
--- OUTSIDE RECORDS SUMMARY | 2024-06-06 08:08 | XMS_ITS ---
Author Organization [facility] [address] [place] [address] Care Team Providers Care Tube Bending Machine Operator Name Role Phone Sabrina Hyatt DO Primary Care Provider [phone] Cj Younger MD Unavailable [phone] Mike Gerard MD PhD Unavailable Jose Aguilar MD Unavailable Lily Perry MD Unavailable [phone] Active Problems Patient Care Coordination No te Formatting of this note migh t be different from the original. Referring provider: Dr. Mike Gerard Ms. Holly Aguero is a 72-year-old with lung cancer. On 12/28/2022 the patient underwent chest CT without contrast which noted a spiculated nodule in the right apex measuring 2.0 x 1.2 x 1.3 cm. This abuts the pleura. There is severe upper lobe predominant centrilobular emphysema. There is a solid 5 mm nodule in the superior segment of the right lower lobe. There is a 3 mm solid nodule in the right lower lobe. There are additional calcified nodules compatible with old granulomatous disease. There was a multinodular thyroid with scattered calcifications. On 01/02/2023 the patient underwent a CT-guided biopsy which showed invasive squamous cell carcinoma. On 01/21/2023 the patient underwent a brain MRI which showed no evidence of intracranial metastatic disease. On 01/29/2023 the patient underwent a PET scan which showed the right apical lung nodule with a maximum SUV of 9.3. The 5 mm nodule in the right lower lobe shows no abnormal uptake. The 3 mm nodule in the right lower lobe shows no abnormal FDG uptake. There was no hypermetabolic thoracic lymphadenopathy. There is no suspicion distant hypermetabolic abnormalities. The right thyroid nodule measures 1.5 cm and does not have any associated FDG uptake. On 11/29/2021 the patient underwent a low Lexiscan which showed global left ventricular function that was normal with a left ventricular ejection fraction of 61%. Myocardial perfusion imaging was abnormal. Ischemia was present in the apical anterior, apical lateral and mid anterior mid anterior lateral ponce which did not resolve with prone positioning. Recommend cardiology follow-up. On 12/11/2021 the patient underwent a cardiac catheterization which showed no angiographic evidence of coronary artery disease. The left ventricular systolic function was well preserved. The stated would lead to the conclusion that the patient has exertional shortness of breath for non ischemic regions, likely related to chronic lung disease in her stress test was a false positive. On 12/28/2022 the patient underwent pulmonary function testing which showed an FEV1 of 30% of predicted. The post bronchodilator FEV1 was 41% of predicted. The DLCO was 43% of predicted. Patient is a former smoker who quit in 2018 with over 100 pack year smoking history.. Patient presents today for further surgical evaluation. Problem Noted Date Diagnosed Date Personal history of radiation therapy 04/02/2023 Malignant neoplasm of upper lobe of right lung 1 Cancer Staging:Clinical stage from 02/05/2023:Stage IA3(cT1c, cN0, cM0) - Signed by Lily Perry MD on 02/05/2023 Abnormal ECG 11/07/2021 Dyspnea on exertion 09/22/2019 Current Treatment and Therapy Plans No current plan information found. Past Treatment and Therapy Plans No past plan information found. Radiation Treatments (No Episode) * Course [id number]/[id number]/2023 - 02/27/2023 Treatment Period Energy Fraction Dose Fractions Total Dose Plans Planned SBRT RUL LUNG 02/18/2023 - 02/27/2023 1,100 5 / 5,500 Reference Points Delivered SBRT RUL LUNG 02/18/2023 - 02/27/2023 5,500
--- OUTSIDE RECORDS SUMMARY | 2024-06-06 08:08 | XMS_ITS | Clinical Summary ---
Author Organization [facility] [address] [address] [address] [place] [address] Care Team Providers Care Boring Machine Set Up Operator Name Role Phone Sabrina Hyatt DO Primary Care Provider [phone] Cj Younger MD Unavailable Mike Gerard MD PhD Unavailable [phone] Jose Aguilar MD Unavailable Lily Perry MD Unavailable [phone] Allergies No known active allergies Medications albuterol HFA (PROVENTIL HFA,VENTOLIN HFA,PROAIR HFA) 90 mcg/actuation inhaler 0 Active cyclobenzaprine (FLEXERIL) 5 mg tablet [address] (CYMBALTA) 30 mg capsule 0 Active Trelegy Ellipta 100-62.5-25 mcg inhaler 0 Active nabumetone (RELAFEN) 500 mg tablet 0 Active ondansetron ODT (ZOFRAN-ODT) 4 mg disintegrating tablet 2 Active traMADoL (ULTRAM) 50 mg tablet 2 Active budesonide-glycopy r-formoterol (Breztri Aerosphere) 160-9-4.8 mcg/actuation HFA aerosol inhaler Inhale Acti ve ipratropium-albute roL (DUO-NEB) 0.5-2.5 mg/3 mL nebulizer solution USE 1 VIAL VIA NEBULIZER 4 TIMES A DAY NEEDED 3 Active meloxicam (MOBIC) 7.5 mg tablet Take 1 tablet (7.5 mg total) by mouth daily as needed 3 Active omeprazole (PriLOSEC) 40 mg capsule TAKE 1 CAPSULE BY MOUTH EVERY MORNING BEFORE A MEAL 3 Active montelukast (SINGULAIR) 10 mg tablet 3 Active nortriptyline (PAMELOR) 25 mg capsule TAKE 1 CAPSULE BY MOUTH EVERY DAY AT BEDTIME FOR SLEEP 4 Active colchicine (COLCRYS) 0.6 mg capsule PLEASE SEE ATTACHED FOR DETAILED DIRECTIONS 4 Active nystatin powder Apply topically 2 (two) times a day APPLY TO AFFECTED AREA 4 Active predniSONE (DELTASONE) 10 mg tablet PLEASE SEE ATTACHED FOR DETAILED DIRECTIONS 4 Active zolpidem (AMBIEN) 5 mg tablet Take 1 tablet (5 mg total) by mouth nightly 4 Active Active Problems Patient Care Coordination No te [...] Abnormal ECG 11/07/2021 Dyspnea on exertion 09/22/2019 Encounters Date Type Department Care Team Description 06/03/2024 Telephone [facility] 2 Radiation Oncology [address] [place] [id number] Phylicia Rodriguez 04/24/2024 Telephone [facility] 2 Radiation Oncology [address] [place] [id number] Malu lFores MA 04/24/2024 Orders Only [facility] 2 Radiation Oncology [address] [place] [id number] Tali See, PA Malignant neoplasm of upper lobe of right lung (HCC) (Primary Dx) from Last 3 Months Surgical History Surgery Date Site/Laterality Comments CARPAL TUNNEL RELEASE Right TUBAL LIGATION Medical History Medical History Date Comments COPD (chronic obstructive pulmonary disease) (HC C) GERD (gastroesophageal reflux disease) Lung cancer (HCC) Family History Medical History Relation Name Comments Breast cancer Maternal Grandmother Kidney failure Mother Thyroid cancer Mother Relation Name Status Comments Father Maternal Grandmother Mother Social History Tobacco Use Types Packs/Day Years Used Date Smoking Tobacco: Former Cigarettes 3 54 1 964 - 2018 Smokeless Tobacco: Never Tobacco Cessation:Counseling Given: Not Answered AUDIT-C Answer Date Recorded Q1: How often do you have a drink containing alc ohol? 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 Gender Identity Not on file Sexual Orientation Not on file Obstetrics History Last Filed Vital Signs Vital Sign Reading Time Taken Comments Blood Pressure 147/82 11/11/2023 11:12 AM CDT Pulse 80 11/11/2023 11:12 AM CDT Temperature 36.7 C (98 F) 01/31/2023 12:06 PM CDT Respiratory Rate 16 01/15/2023 2:02 PM CDT Oxygen Saturation 95% 11/11/2023 11:12 AM CDT Inhaled Oxygen Concentration - - Weight 82.6 kg (182 lb) 11/11/2023 11:12 AM CDT Height 158.8 cm (5' 2.5 ) 01/15/2023 2:02 PM CDT Body Mass Index 32.76 01/15/2023 2:02 PM CDT Plan of Treatment Health Maintenance Due Date Last Done Comments Breast Cancer Screening-Mammogram 1952 Colon Cancer Screening-Colonoscopy 1950 Depression Screening 1950 Fall Risk Assessment 1950 Hepatitis C Screening 1950 Osteoporosis Screening-Bone Density Scan 1950 Hepatitis B Screening 1970 Well Visit 65+ 2017 Zoster Vaccine (2 of 2) 01/25/2024 11/30/2023 DTaP/Tdap/Td Vaccine (2 - Td or Tdap) 11/26/2029 11/27/2019 Pneumococcal vaccine 65+ Completed 06/15/2019, 10/2017 Influenza Vaccine Completed 03/05/2024, , 02/06/2022, Additional history exists Insurance [facility] Care Teams Boring Machine Set Up Operator Relationship Specialty Start Date End Date Sabrina Haytt DO PCP - General Internal Medicine 06/16/19 Cj Younger MD [address] [place] [address] [address] [place], [place] [id number] Referring Physician Critical Care Med 01/08/23 Mike Gerard MD PhD [address] [place] [id number] Consulting Physician Medical Oncology 01/23/23 Jose Aguilar MD [id number] [place] [address] Surgeon Thoracic Surgery 02/06/23 Lily Perry MD [address] [place] [address] [address] [place], [place] [address] Radiation Oncologist Radiation Oncology 07/29/23
--- OUTSIDE RECORDS SUMMARY | 2024-06-06 08:08 | XMS_ITS | Referral Summary ---
Author Organization [facility] [address] [address] Address [address] [place] [address] Care Team Providers Care Mail Distribution Scheme Examiner Name Role Phone Edmar Sabrinacarlos Robins DO Primary Care Provider [phone]- [phone] Cj Younger MD Unavailable Mike Gerard MD PhD Unavailable Jose Aguilar MD Unavailable Lily Perry MD Unavailable Encounters Date Type Department Care Team Description 06/03/[address] [facility] 2 Radiation Oncology [address] [place] [address] Phylicia Rodriguez 04/24/[address] [facility] 2 Radiation Oncology [address] [place] [address] Malu Flores MA 04/24/[address] 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 Gender Identity Not on file Sexual Orientation Not on file Last Filed Vital Signs Vital Sign Reading [...] 01/15/2023 2:02 PM CDT Plan of Treatment Not on file Insurance [facility] Care Teams Mail Distribution Scheme Examiner Relationship Specialty Start Date End Date Sabrina Hyatt DO PCP - General Internal Medicine 06/16/19 Cj Younger MD [address] [place] [address] [address] [place] [address] Referring Physician Critical Care Med 01/08/23 Mike Gerard MD PhD [facility] [address] Consulting Physician Medical Oncology 01/23/23 Jose Aguilar MD [address] [facility] [id number] [place] [address] Surgeon Thoracic Surgery 02/06/23 Lily Perry MD [address] [place] [id number] Radiation Oncologist Radiation Oncology 07/29/23
== END 2024-06-06 08:04 | disposition home or self-care (01) ==
PROVIDERS: PCP Internal Medicine; Visit Provider Physician Assistant Medical
DX: C34.11 Malignant neoplasm of upper lobe, right bronchus or lung (principal); E04.2 Nontoxic multinodular goiter; J43.9 Emphysema, unspecified
CPT/HCPCS: 71250